=== PATIENT | male | born 1955 | race Caucasian/White ===

== ENCOUNTER 2019-11-06 05:43 | Emergency (ER) | payer OTHER, SELFPAY ==
[2019-11-06 05:47] VITALS: BP 136/93; PULSE 97; RESP 20; TEMP 36.9; O2SAT 96
--- NOTE | 2019-11-06 06:07 | DI.RAD.S_ITS ---
PROCEDURE: XR CHEST 1V INDICATIONS: cough TECHNIQUE: One view of the chest was acquired. COMPARISON: None. FINDINGS: Surgical changes and devices: None. Lungs and pleura: There is a slight patchy appearance in the left lower lobe with a minimal appearance of right lower lobe coarsening. Mediastinum: Mediastinal contours appear normal. Heart size is normal. Bones and chest wall: No suspicious bony lesions. Overlying soft tissues appear unremarkable. IMPRESSION: Slight patchy left lower lobe opacity suggestive of developing airspace disease such as pneumonia. Coarsening is noted in the right base. This could represent atelectasis or developing pneumonia. Dictated by: Payal Nash M.D. on 11/06/2019 at 8:29 Approved by: Payal Nash M.D. on 11/06/2019 at 8:30
--- NOTE | 2019-11-06 06:11 | ED_ITS ---
HPI - SOB/Dyspnea General Chief Complaint: Upper Respiratory Symptoms Stated Complaint: dry cough/lathargic [id number] in [place] Time Seen by Provider: 11/06/19 05:47 Source: patient Mode of arrival: Ambulatory Limitations: no limitations History of Present Illness HPI Narrative: 63-year-old male former smoker with history of diabetes, hypertension and hyperlipidemia presents with a chief complaint of a dry hacking cough for about a month and a half. He denies fever at any point time, he denies any sputum production, chest pain, shortness of breath, sore throat nor nausea, vomiting or diarrhea. He has been living in [place] for 5 years and left on September 05 for what was plan to be a 1 week trip to [facility]. While he was gone [employer] closed its borders to travel in his hip sting in [place] for 5 weeks and came here afterwards. Per [facility] [employer] requirements he has been taking temperature twice daily for 60 days. He has had no interaction to persons with known COVID-19 Related Data Previous Rx's Medication Instructions Recorded dapagliflozin 5 mg tablet 5 mg PO BID #60 tab 10/12/19 olmesartan 20 mg tablet 20 mg PO DAILY #30 tab 10/12/19 rosuvastatin 10 mg tablet 10 mg PO DAILY #30 tab 10/12/19 metformin 1,000 mg tablet 1,000 mg PO BID #180 tab 10/26/19 doxycycline hyclate 100 mg PO BID #20 tab 11/06/19 Allergies Allergy/AdvReac Type Severity Reaction Status Date / Time No Known Drug Allergies Allergy Verified 10/12/19 10:37 Review of Systems Constitutional Constitutional: Denies chills, Denies fatigue, Denies fever(s), Denies frequent falls, Denies lethargy and Denies weakness Eyes Eyes: Denies change in vision, Denies eye discharge, Denies irritation and Denies loss of vision ENT Ears, Nose, Mouth, and Throat: Denies change in voice, Denies dizziness, Denies neck pain, Denies sore throat and Denies throat swelling Cardiovascular Cardiovascular: Denies chest pain, Denies irregular heart rhythm, Denies lightheadedness, Denies palpitations, Denies dyspnea, Denies dyspnea on exertion and Denies orthopnea Respiratory Respiratory: Reports cough, Denies dyspnea, Denies dyspnea on exertion and Denies wheezing Gastrointestinal Gastrointestinal: Denies abdominal pain, Denies change in bowel habits, Denies diarrhea, Denies nausea and Denies vomiting Genitourinary Genitourinary: Denies hematuria, Denies flank pain, Denies urinary incontinence and Denies urinary urgency Musculoskeletal Musculoskeletal: Denies back pain, Denies muscle weakness, Denies neck pain, Denies numbness and Denies tingling Integumentary/Breasts Skin/Breast: Denies pruritus, Denies erythema, Denies rash and Denies wounds Neurologic Neurologic: Denies behavioral changes, Denies confusion, Denies dizziness, Denies frequent falls, Denies loss of vision, Denies numbness, Denies tingling and Denies weakness Psychiatric Psychiatric: Denies anxiety, Denies behavioral changes, Denies confusion, Denies depression, Denies homicidal ideation and Denies suicidal ideation Endocrine Endocrine: Denies fatigue, Denies flushing and Denies palpitations Hematologic/Lymphatic Hematologic/Lymphatic: Denies easy bruising Allergic/Immunologic Allergic/Immunologic: Denies urticaria, Denies throat swelling and Denies wheezing Patient History Social History Smoking Status: Former smoker Smoking Status: Former smoker tobacco type: cigarettes and cigars Substance Use Type: does not use Exam Narrative Exam Narrative: GENERAL: [63] year old patient appears stated age. Well- nourished, well-developed patient, in mild distress. HEAD: Atraumatic. Normocephalic. EYES: Pupils equal round and reactive. Extraocular motions intact. No scleral icterus. No injection or drainage. ENT: Clear postnasal drip Nose without bleeding, purulent drainage. Throat without erythema, tonsillar hypertrophy or exudate. Airway patent. NECK: Trachea midline. Non tender CARDIOVASCULAR: Regular rate and rhythm without murmurs, gallops, or rubs. RESPIRATORY: Decreased breath sounds bilaterally with a mild expiratory wheeze and right posterior lung GASTROINTESTINAL: Abdomen soft, non-tender, nondistended. EXTREMITIES: No edema or joint tenderness. BACK: Nontender without deformity or crepitance. No flank tenderness. NEURO: AOx3. SKIN: No rash or erythema of visible areas Initial Vital Signs Initial Vital Signs: Vital Signs Temperature 98.4 F 11/06/19 05:47 Pulse Rate 97 H 11/06/19 05:47 Respiratory Rate 20 11/06/19 05:47 Blood Pressure 136/93 H 11/06/19 05:47 Pulse Oximetry 96 11/06/19 05:47 Course Orders Ordered: Discontinued Medications Albuterol (Ventolin Hfa Prepack) 1 box MISC SEEINSTR ONE Stop: 11/06/19 06:08 Last Admin: 11/06/19 06:14 Dose: 1 box Documented by: MEGAN Vital Signs Vital signs: Vital Signs - 8 hr 11/06/19 05:47 Temperature 98.4 F Pulse Rate 97 H Respiratory Rate 20 Blood Pressure 136/93 H Pulse Oximetry 96 MDM - SOB/Dyspnea Lab Data Labs: Lab Results 11/06/19 Range/Units 06:05 Influenza A (RT-PCR) Flu a negative (NEGATIVE) Influenza B (RT-PCR) Flu b negative (NEGATIVE) Discharge Plan Departure Patient Disposition: Home Clinical Impression: Pneumonia Qualifiers: Pneumonia type: due to unspecified organism Laterality: left Lung location: lower lobe of lung Qualified Code(s): J18.9 - Pneumonia, unspecified organism Discharge Date/Time: 11/06/19 07:35 Instructions: Pneumonia-Adult Activity Restrictions/Additional Instructions: *You have been diagnosed with [possible evolving pneumonia] *What to do: *Take medications as directed *Follow up with your primary care provider in 2-3 days, call for an appointment. Let them know you were seen in the Emergency Department and that we ask that you be seen in follow up *Return to ER if you should have any new, worsening or concerning symptoms Prescriptions: New doxycycline hyclate 100 mg tablet 100 mg PO BID Qty: 20 RF: 0 No Action dapagliflozin 5 mg tablet 5 mg PO BID Qty: 60 RF: 0 olmesartan 20 mg tablet 20 mg PO DAILY Qty: 30 RF: 0 rosuvastatin [Crestor] 10 mg tablet 10 mg PO DAILY Qty: 30 RF: 0 metformin 1,000 mg tablet 1,000 mg PO BID Qty: 180 RF: 0
[2019-11-06] MEDS: ALBUTEROL HFA PREPACK 1 BOX MISC (06:14)
[2019-11-06 06:58] LABS: Influenza A - CEPHEID Flu A NEGATIVE (NEGATIVE); Influenza B - CEPHEID Flu B NEGATIVE (NEGATIVE)
[2019-11-06 07:35] VITALS: BP 136/93; PULSE 86; RESP 20; O2SAT 91
[2019-11-08 03:54] LABS: COVID19 Sendout Not Detected (Not Detected)
== END 2019-11-06 07:35 | disposition home or self-care (01) ==
PROVIDERS: Emergency Provider Emergency Medicine
DX: J18.9 Pneumonia, unspecified organism (principal); E11.9 Type 2 diabetes mellitus without complications; I10 Essential (primary) hypertension; E78.5 Hyperlipidemia, unspecified
CPT/HCPCS: 71045; 87502; 87635; 94640; 99283

== ENCOUNTER → 2020-10-24 09:21 | Outpatient (CLI) | payer OTHER, SELFPAY ==
[2020-10-24 10:31] LABS: Cholesterol 109 mg/dL (140-199); HDL Cholesterol 34 mg/dL (40-60); Triglycerides 444 mg/dL (35-150)
[2020-10-24 10:33] LABS: Hemoglobin A1C% w Est Avg Glu 10.1 % (4.0-6.0)
== END ==
PROVIDERS: PCP Internal Medicine; Referring Provider Internal Medicine; Visit Provider Internal Medicine
DX: E78.5 Hyperlipidemia, unspecified (principal); E11.9 Type 2 diabetes mellitus without complications
CPT/HCPCS: 36415; 80061; 83036